=== PATIENT | female | born 1975 | race Caucasian/White ===

== ENCOUNTER → 2018-12-26 08:53 | Outpatient (CLI) | payer OTHER, SELFPAY ==
[2017-12-13 15:31] VITALS: BMI 39.4
[2018-12-26 09:55] LABS: Absolute Lymphocyte Count 2.44 X10^3/uL (0.83-4.51); Absolute Neutrophil Count 5.3 X10^3/uL (2.0-7.7); Basophil# 0.07 X10^3/uL; Basophil% 0.8 % (0-1); Eosinophil# 0.54 X10^3/uL; Eosinophils% 6.2 % (0-5); Hematocrit 43.2 % (37-47); Hemoglobin 14.1 g/dL (12.0-15.0); Lymphocyte # 2.44 X10^3/ul (4.0); Lymphocyte % 27.9 % (19-41); Mean Corp Hgb Conc 32.6 g/dL (32-36); Mean Corpuscular Hgb 28.3 pg (27.0-32.0); Mean Corpuscular Volume 86.6 fL (81-99); Mean Platelet Vol. 9.4 fl (6.2-12.0); Monocyte# 0.35 X10^3/uL; NRBC Flagged by Analyzer 0 % (0-5); Neutrophil # 5.32 X10^3/uL (2.7-7.7); Neutrophil % 60.8 % (47-70); Platelet Count 275 K/mm3 (150-450); RBC Distribution Width CV 13.4 % (11.6-14.6); RBC Distribution Width SD 42.3 fl (35.1-43.9); Red Blood Count 4.99 M/mm3 (4.2-5.4); White Blood Count 8.8 K/mm3 (4.4-11.0)
[2018-12-26 10:37] LABS: AST(SGOT) 11 U/L (15-37); Alanine Aminotransfer ALT/SGPT 18 U/L (13-56); Albumin, Serum 3.3 g/dL (3.2-5.0); Alkaline Phosphatase 65 U/L (45-117); Anion Gap 5 (5-15); BUN 10 mg/dL (7-18); BUN/Creat Ratio 15.3 RATIO (10-20); Calcium,Total 8.3 mg/dL (8.5-10.1); Chloride 104 mmol/L (98-107); Cholesterol 128 mg/dL (200); Creatinine, Serum 0.65 mg/dL (0.55-1.02); EST Glomerular Filtration Rate 104 mL/min (>60); Est Glom Filt Rate - Afr Amer 126 mL/min (>60); Globulin 3.3 g/dL (2.2-4.2); Glucose 99 mg/dL (74-106); High Density Lipoprotein 52 mg/dL; Potassium 3.9 mmol/L (3.5-5.1); Protein, Total 6.6 g/dL (6.4-8.2); Sodium Level 138 mmol/L (136-145); Thyroid Stim Hormone (TSH) 2.57 uIU/mL (0.358-3.74); Triglycerides 168 mg/dL; Very Low Density Lipoprotein 34 mg/dL (5-40)
== END ==
DX: Z00.00 Encounter for general adult medical examination without abnormal findings (principal); E03.9 Hypothyroidism, unspecified
CPT/HCPCS: 36415; 80053; 80061; 84443; 85025

== ENCOUNTER → 2019-11-08 09:05 | Outpatient (CLI) | payer OTHER, SELFPAY ==
[2019-03-13 16:47] VITALS: BMI 39.4
[2019-11-08 09:39] LABS: Absolute Lymphocyte Count 2.13 X10^3/uL (0.83-4.51); Basophil# 0.04 X10^3/uL; Basophil% 0.5 % (0-1); Hematocrit 43.2 % (37-47); Hemoglobin 14.2 g/dL (12.0-15.0); Lymphocyte # 2.13 X10^3/ul (4.0); Lymphocyte % 26.5 % (19-41); Mean Corp Hgb Conc 32.9 g/dL (32-36); Mean Corpuscular Hgb 28.1 pg (27.0-32.0); Mean Corpuscular Volume 85.5 fL (81-99); Mean Platelet Vol. 9.1 fl (6.2-12.0); Monocyte# 0.46 X10^3/uL; Monocyte% 5.7 % (0-10); NRBC Flagged by Analyzer 0 % (0-5); Neutrophil # 4.99 X10^3/uL (2.7-7.7); Neutrophil % 61.9 % (47-70); Platelet Count 287 K/mm3 (150-450); RBC Distribution Width CV 13.3 % (11.6-14.6); RBC Distribution Width SD 41.7 fl (35.1-43.9); Red Blood Count 5.05 M/mm3 (4.2-5.4); White Blood Count 8.1 K/mm3 (4.4-11.0)
[2019-11-08 10:24] LABS: ALB/GLOB Ratio 0.9 RATIO (0.9-2.4); AST(SGOT) 9 U/L (15-37); Alanine Aminotransfer ALT/SGPT 18 U/L (13-56); Albumin, Serum 3.4 g/dL (3.2-5.0); Alkaline Phosphatase 68 U/L (45-117); Anion Gap 3 (5-15); BUN 8 mg/dL (7-18); Calcium,Total 8.5 mg/dL (8.5-10.1); Chloride 109 mmol/L (98-107); Cholesterol 144 mg/dL (200); EST Glomerular Filtration Rate 82 mL/min (>60); Est Glom Filt Rate - Afr Amer 99 mL/min (>60); Globulin 3.6 g/dL (2.2-4.2); Glucose 103 mg/dL (74-106); High Density Lipoprotein 54 mg/dL; Potassium 4.2 mmol/L (3.5-5.1); Sodium Level 141 mmol/L (136-145); T4 Free Direct 1.26 ng/dL (0.76-1.46); Triglycerides 109 mg/dL; Very Low Density Lipoprotein 22 mg/dL (5-40)
== END ==
DX: Z00.00 Encounter for general adult medical examination without abnormal findings (principal); E03.9 Hypothyroidism, unspecified
CPT/HCPCS: 36415; 80053; 80061; 84439; 84443; 85025

== ENCOUNTER → 2019-11-15 07:00 | Outpatient (CLI) | payer OTHER, SELFPAY ==
[2019-03-13 16:47] VITALS: BMI 39.4
--- NOTE | 2019-11-15 07:03 | BI_ITS ---
MAMMOGRAPHY - BILATERAL SCREENING REASON FOR EXAM: Female, 44 years old. Routine annual screening examination. PERTINENT HISTORY: Non-contributory. TECHNIQUE: Digital bilateral breast phill (3D mammographic acquisition) in the CC and MLO projections. 2-D mediolateral oblique (MLO) and craniocaudad (CC) views of both breasts were obtained. CAD: Full Field Digital Mammography with Computer Added Detection was performed. COMPARISON: Comparison is made with prior outside examination dated 03/18/2017. FINDINGS: Breast Composition: The breasts are heterogeneously dense, which may obscure small masses. There are no dominant masses or suspicious calcifications. No other significant abnormalities are identified. There has been no significant change since the prior study. BI/SCREEN MAMM (CAD) W/PHILL BILAT IMPRESSION: Stable bilateral screening mammogram. Yearly follow-up mammogram recommended. (A) ASSESSMENT CATEGORY: BIRADS Category 1: Negative. A letter regarding these results will be sent to the patient by the facility within 30 days. Approximately 10% of breast cancers are not detected by mammography. A normal mammogram should not delay biopsy of a clinically suspicious abnormality. [id number] Electronically Signed: David Peck, at 7:59 EDT , Service support ,
== END ==
DX: Z12.31 Encounter for screening mammogram for malignant neoplasm of breast (principal)
CPT/HCPCS: 77063; 77067

== ENCOUNTER → 2020-09-03 07:13 | Outpatient (CLI) | payer OTHER, SELFPAY ==
[2020-08-29 12:06] VITALS: BMI 36.5
--- NOTE | 2020-09-03 07:14 | MRI_ITS ---
STUDY: MRI RIGHT KNEE REASON FOR EXAM: Female, 44 years old. Pain. Injury. TECHNIQUE: Standardized fat and water weighted pulse sequences were obtained in all 3 orthogonal planes. COMPARISON: X-ray dated 08/30/2020. FINDINGS: Patellofemoral grade 3 cartilage loss. Lateral compartment articular cartilage preserved. Medial compartment grade 2/3 cartilage loss. No acute fracture, dislocation or cortical destruction. Multiple osteophytes. Mild medial meniscal degeneration. Lateral meniscus intact. Anterior and posterior cruciate ligaments intact. Small volume joint effusion. Small popliteal cyst. Mild soft tissue swelling. Normal medial collateral ligamentous complex (MCL). Normal distal semimembranosus, gracilis and semitendinosus tendons. Normal proximal tibiofibular articulation. Normal lateral collateral (fibular) ligament. Normal popliteus tendon. Normal biceps femoris tendon. Normal medial and lateral patellar retinaculum. Normal quadriceps tendon. Normal patellar tendon. Normal Hoffa''s fat pad. MRI/Lower Ext Joint Only (Routine) IMPRESSION: Medial meniscal degeneration Moderate patellofemoral cartilage loss Mild/moderate medial compartment cartilage loss Small volume joint effusion, small popliteal cyst and mild swelling Electronically Signed: Bret Kaiser DO at 9:40 EDT Tel , Service support ,
== END ==
PROVIDERS: Referring Provider Orthopaedic Surgery; Visit Provider Orthopaedic Surgery
DX: M25.561 Pain in right knee (principal); S89.91XA Unspecified injury of right lower leg, initial encounter
CPT/HCPCS: 73721

== ENCOUNTER → 2020-11-25 10:55 | Outpatient (CLI) | payer OTHER, SELFPAY ==
--- NOTE | 2020-11-25 10:56 | ECHOCS_ITS ---
Reason For Study: Dyspnea, Uncontrolled HTN Procedure This was a 2D Doppler, Color Flow transthoracic echocardiogram. Contrast injection was performed. Exam performed in department. Left Ventricle Normal LV size. Mild concentric left ventricular hypertrophy. Left ventricular systolic function is normal. The estimated ejection fraction is 60 %. Normal diastology for age. No regional wall motion abnormalities noted. Right Ventricle Normal RV size. Normal systolic function. Atria Normal left atrium. Normal right atrium. Mitral Valve Normal mitral valve. Tricuspid Valve Normal tricuspid valve. Mild (1+) tricuspid valve insufficiency. Pulmonary artery systolic pressure is 30 mmHg. Aortic Valve Normal aortic valve. Trisinus/trileaflet aortic valve. Pulmonic Valve Normal pulmonic valve. Great Vessels Normal aortic root. The pulmonary artery is normal size. Normal inferior vena cava. Pericardium/Pleural No pericardial effusion. Medication Diluted definity 3ml given slow IV push to enhance endocardial definition. MMode/2D Measurements & Calculations LVIDd: 4.5 cm IVSd: 1.2 cm Ao root diam: 3.0 cm LVIDs: 3.0 cm LVPWd: 1.2 cm RVDd: 3.5 cm FS: 33.9 % LAV(MOD-bp): 40.7 ml LVAd ap4: 28.8 cm2 SV(MOD-sp4): 51.8 ml LAV(MOD-bp) Indexed: 17.8 ml/m2 LVLd ap4: 7.5 cm LAV(MOD-sp2): 37.5 ml EDV(MOD-sp4): 89.8 ml LAV(MOD-sp4): 43.2 ml EDV(sp4-el): 93.2 ml LVAs ap4: 16.4 cm2 LVLs ap4: 6.1 cm ESV(MOD-sp4): 38.0 ml ESV(sp4-el): 37.7 ml EF(MOD-sp4): 57.7 % EF(sp4-el): 59.6 % SV(sp4-el): 55.6 ml LA A4 area: 15.9 cm2 LA dimension(2D): 3.6 cm RA A4 area: 12.7 cm2 Doppler Measurements & Calculations MV E max stuart: 92.1 cm/sec Lat Peak E' Stuart: 14.0 cm/sec Med Peak E' Stuart: 9.2 cm/sec MV A max stuart: 74.7 cm/sec E/E' lat: 6.6 E/E' med: 10.0 MV E/A: 1.2 Ao V2 max: 152.1 cm/sec LV V1 max: 130.2 cm/sec PA V2 max: 88.0 cm/sec Ao max P.2 mmHg LV V1 max P.8 mmHg Ao V2 mean: 102.8 cm/sec Ao mean P.6 mmHg Ao V2 VTI: 31.4 cm TR max stuart: 253.0 cm/sec TR max P.6 mmHg ECHO/Echo Complete W/ Contrast Interpretation Summary Normal LV size. Mild concentric left ventricular hypertrophy. Left ventricular systolic function is normal. The estimated ejection fraction is 60 %. Normal diastology for age. Contrast injection was performed. Ordering Physician: Nacho Delgado Referring Physician: Nacho Delgado Performed By: Maddie Lang, JOSÉ LUIS, RVT
[2020-11-25 14:22] LABS: Anion Gap 7 (5-15); BUN 9 mg/dL (7-18); BUN/Creat Ratio 12.9 RATIO (10-20); Calcium,Total 8.5 mg/dL (8.5-10.1); Chloride 103 mmol/L (98-107); EST Glomerular Filtration Rate 96 mL/min (>60); Est Glom Filt Rate - Afr Amer 116 mL/min (>60); Glucose 118 mg/dL (74-106); Potassium 3.4 mmol/L (3.5-5.1); Sodium Level 139 mmol/L (136-145)
== END ==
PROVIDERS: Referring Provider Internal Medicine Cardiovascular Disease; Visit Provider Internal Medicine Cardiovascular Disease
DX: I10 Essential (primary) hypertension (principal); R06.00 Dyspnea, unspecified; R05 Cough
CPT/HCPCS: 36415; 80048; 93306; Q9957; A4216; C8929; J3490

== ENCOUNTER → 2020-11-28 13:58 | Outpatient (CLI) | payer OTHER, SELFPAY | PROVIDERS: Referring Provider Internal Medicine Cardiovascular Disease; Visit Provider Internal Medicine Cardiovascular Disease | DX: I10 Essential (primary) hypertension (principal) | CPT/HCPCS: 36415; 82088; 84244 ==

== ENCOUNTER → 2020-12-10 07:24 | Outpatient (CLI) | payer OTHER, SELFPAY ==
[2020-12-10 08:13] LABS: Absolute Lymphocyte Count 1.81 X10^3/uL (0.83-4.51); Absolute Neutrophil Count 4.3 X10^3/uL (2.0-7.7); Basophil# 0.04 X10^3/uL; Basophil% 0.6 % (0-1); Eosinophil# 0.42 X10^3/uL; Eosinophils% 6.1 % (0-5); Hemoglobin 13.7 g/dL (12.0-15.0); Lymphocyte # 1.81 X10^3/ul (0.83-4.51); Lymphocyte % 26.2 % (19-41); Mean Corp Hgb Conc 32.6 g/dL (32-36); Mean Corpuscular Hgb 27.2 pg (27.0-32.0); Mean Corpuscular Volume 83.3 fL (81-99); Mean Platelet Vol. 9.2 fl (6.2-12.0); Monocyte# 0.33 X10^3/uL; Monocyte% 4.8 % (0-10); NRBC Flagged by Analyzer 0 % (0-5); Neutrophil # 4.28 X10^3/uL (2.7-7.7); Platelet Count 335 K/mm3 (150-450); RBC Distribution Width CV 13.2 % (11.6-14.6); RBC Distribution Width SD 40.1 fl (35.1-43.9); Red Blood Count 5.04 M/mm3 (4.2-5.4); White Blood Count 6.9 K/mm3 (4.4-11.0)
[2020-12-10 08:52] LABS: ALB/GLOB Ratio 0.9 RATIO (0.9-2.4); AST(SGOT) 9 U/L (15-37); Alanine Aminotransfer ALT/SGPT 18 U/L (13-56); Albumin, Serum 3.3 g/dL (3.2-5.0); Alkaline Phosphatase 71 U/L (45-117); Anion Gap 9 (5-15); BUN 9 mg/dL (7-18); BUN/Creat Ratio 13.3 RATIO (10-20); Calcium,Total 8.4 mg/dL (8.5-10.1); Chloride 105 mmol/L (98-107); Cholesterol 142 mg/dL (200); Creatinine, Serum 0.68 mg/dL (0.55-1.02); EST Glomerular Filtration Rate 99 mL/min (>60); Est Glom Filt Rate - Afr Amer 120 mL/min (>60); Globulin 3.6 g/dL (2.2-4.2); Glucose 118 mg/dL (74-106); High Density Lipoprotein 49 mg/dL; Potassium 3.7 mmol/L (3.5-5.1); Protein, Total 6.9 g/dL (6.4-8.2); Sodium Level 140 mmol/L (136-145); Thyroid Stim Hormone (TSH) 0.11 uIU/mL (0.358-3.74); Triglycerides 115 mg/dL; Very Low Density Lipoprotein 23 mg/dL (5-40)
[2020-12-10 09:20] LABS: HIV - WCH Non-Reactive (Nonreactive); Hepatitis C Antibody Non-Reactive (Nonreactive)
== END ==
DX: Z00.00 Encounter for general adult medical examination without abnormal findings (principal); E03.9 Hypothyroidism, unspecified
CPT/HCPCS: 36415; 80053; 80061; 84443; 85025; 86703; 86803

== ENCOUNTER → 2020-12-31 06:57 | Outpatient (CLI) | payer OTHER, SELFPAY ==
--- NOTE | 2020-12-31 06:59 | BI_ITS ---
MAMMOGRAPHY - BILATERAL SCREENING REASON FOR EXAM: Female, 45 years old. Routine annual screening examination. PERTINENT HISTORY: Non-contributory. TECHNIQUE: Digital bilateral breast phill (3D mammographic acquisition) in the CC and MLO projections. 2-D mediolateral oblique (MLO) and craniocaudad (CC) views of both breasts were obtained. CAD: Full Field Digital Mammography with Computer Added Detection was performed. COMPARISON: Comparison is made with prior study 11/15/2019. FINDINGS: Breast Composition: The breasts are heterogeneously dense, which may obscure small masses. There are no dominant masses or suspicious calcifications. No other significant abnormalities are identified. There has been no significant change since the prior study. BI/SCRN MAMM (CAD)W/PHILL BILAT IMPRESSION: Stable bilateral screening mammogram. Yearly follow-up mammogram recommended. (A) ASSESSMENT CATEGORY: BIRADS Category 1: Negative. A letter regarding these results will be sent to the patient by the facility within 30 days. Approximately 10% of breast cancers are not detected by mammography. A normal mammogram should not delay biopsy of a clinically suspicious abnormality. [id number] Electronically Signed: David Peck MD at 8:59 EDT , Service support ,
== END ==
DX: Z12.31 Encounter for screening mammogram for malignant neoplasm of breast (principal)
CPT/HCPCS: 77063; 77067

== ENCOUNTER → 2021-03-03 13:14 | Outpatient (CLI) | payer OTHER, SELFPAY ==
[2021-03-03 14:16] LABS: Thyroid Stim Hormone (TSH) 0.23 uIU/mL (0.358-3.74)
== END ==
DX: E03.9 Hypothyroidism, unspecified (principal)
CPT/HCPCS: 36415; 84443

== ENCOUNTER → 2021-06-03 11:01 | Outpatient (CLI) | payer OTHER, SELFPAY ==
[2021-06-03 13:13] LABS: T4 Free Direct 1.15 ng/dL (0.76-1.46)
== END ==
DX: E03.9 Hypothyroidism, unspecified (principal)
CPT/HCPCS: 36415; 84439; 84443